=== PATIENT | male | born 1960 | race Caucasian/White ===

== ENCOUNTER 2016-05-30 07:59 | Day surgery (SDC) | payer OTHER ==
[~2016-05-30] VITALS: Ht 179.1 cm; Wt 109.0 kg
[~2016-05-30 07:59] MED LIST: ADALAT CC 30 MG30 MG PO; ADVAIR 250/501 DISK IH; ADVAIR 500/501 DISK IH; ALLEGRA180 MG PO; Advair 250/50 Diskus IH; Ascorbic Acid PO; BUPROBAN150 MG PO; CELEBREX200 MG PO; COMBIVENT200 INHALA IH; Combivent IH; DELTASONE20 M1 PO; Flexeril PO; INDOCIN25 MG PO; MYSOLINE50 MG PO; Martinic PO; NASONEX17 GM BOTH NARES; NASONEX17 GM NS; NEXIUM40 MG PO; NIFEDIPINE20 MG PO; NORCO 7.5/321 TABLET PO; Nifedipine PO; OMEGA 3-6-91200 MG PO; PRIMIDONE PO; PRIMIDONE50 MG PO; Percocet 5/325,Endoc PO; SINGULAIR10 MG PO; SKELAXIN800 MG PO; SYMBICORT60 INHALAT IH; Singulair PO; ULTRAM50 MG PO; UNABLEOBTAIN; VITAMIN B12-FO1 EACH PO; VITAMIN C1000 MG PO; VITAMIN D32000 UNIT PO; Vitamin D PO
== END 2016-05-30 09:30 | disposition home or self-care (01) ==
LOC: PAIN 07:59 → SDC 08:30 → PAIN 09:30
DX: M47.896 Other spondylosis, lumbar region (principal); M54.16 Radiculopathy, lumbar region; J45.909 Unspecified asthma, uncomplicated; I10 Essential (primary) hypertension; E78.5 Hyperlipidemia, unspecified; K21.9 Gastro-esophageal reflux disease without esophagitis; M19.90 Unspecified osteoarthritis, unspecified site; G47.30 Sleep apnea, unspecified; R25.1 Tremor, unspecified; F41.1 Generalized anxiety disorder
CPT/HCPCS: J1030; J2250; J3010; S0020

== ENCOUNTER 2016-07-02 12:20 | Day surgery (SDC) | payer OTHER ==
[~2016-07-02] VITALS: Ht 182.9 cm; Wt 108.9 kg
== END 2016-07-02 14:15 | disposition home or self-care (01) ==
LOC: PAIN 12:20 → SDC 12:45 → PAIN 12:45
PROC: 3E0U33Z Introduction of Anti-inflammatory into Joints, Percutaneous Approach (ICD-10-PCS; principal; 2016-07-02)
DX: M46.1 Sacroiliitis, not elsewhere classified (principal); M54.16 Radiculopathy, lumbar region; F41.1 Generalized anxiety disorder; J45.909 Unspecified asthma, uncomplicated; K22.70 Barrett's esophagus without dysplasia; I10 Essential (primary) hypertension; E78.5 Hyperlipidemia, unspecified; G47.30 Sleep apnea, unspecified
CPT/HCPCS: J1030; S0020

== ENCOUNTER 2016-12-17 16:46 | Observation (INO) | payer OTHER ==
[~2016-12-17] VITALS: Ht 180.3 cm; Wt 119.8 kg
[~2016-12-17 16:46] MED LIST changes: +VITAMIN D2000 UNIT PO; -VITAMIN D32000 UNIT PO
[2016-12-17 17:41] LABS: ADD MIUA? NO; BILIRUBIN NEGATIVE; BLOOD NEGATIVE; COLOR YELLOW ((YELLOW)); GLUCOSE (STRIP) NEGATIVE; KETONES NEGATIVE; LEUKOCYTES NEGATIVE; NITRITE NEGATIVE; PROTEIN (STRIP) NEGATIVE; SPECIFIC GRAVITY 1.025 (1.000-1.030); UROBILINOGEN 0.2 MG/DL (0.2-1.0)
[2016-12-17 18:15] LABS: HEMATOCRIT 43.2 % (38.0-50.0); MCHC 34.5 G/DL (30.0-36.0); MCV 95.8 FL (86-99); MEAN PLAT.VOLUME 9.8 uM^3 (9.0-12.4); PLATELET COUNT 274 K/uL (156-360); RBC DIS.WIDTH-CV 12.6 % (11.8-14.6); RBC DIS.WIDTH-SD 44.7 % (39-53); RED BLOOD COUNT 4.51 M/uL (4.00-5.50); WHITE BLOOD COUNT 10.6 K/uL (4.1-10.2)
[2016-12-17 18:21] LABS: PROTHROMBIN TIME 11.3 SEC (10.2-12.9)
[2016-12-17 18:23] LABS: D-DIMER ELISA < 150.00 ng/mLDDU (<230)
[2016-12-17 18:24] LABS: PTT 28.9 SEC (25-37)
[2016-12-17 18:28] LABS: CHLORIDE 107 mEq/L (99-109); SODIUM 141 mEq/L (136-147)
[2016-12-17 18:31] LABS: GLUCOSE 106 mg/dL (70-99)
[2016-12-17 18:32] LABS: ANION GAP 14 MEQ/L (2-14)
[2016-12-17 18:33] LABS: TOTAL BILIRUBIN 0.3 mg/dL (0.0-1.0)
[2016-12-17 18:34] LABS: ALKALINE PHOSPHATASE 37 IU/L (3-129); GFR ESTIMATE (CALCULATED) > 59 mL/min/
[2016-12-17 18:35] LABS: UREA NITROGEN (BUN) 26 mg/dL (9-23)
[2016-12-17 18:36] LABS: TROP-I INTERPRETATION NEGATIVE; TROPONIN-I < 0.01 ng/mL (0.0-0.30)
[2016-12-17 18:38] LABS: LIPASE 33 U/L (1.0-51.0)
[2016-12-17] MEDS ORDERED: unable to obtain (19:35)
[2016-12-17] MEDS ORDERED: CIPRO500 MG PO (21:00)
[2016-12-17 21:25] LABS: TROP-I INTERPRETATION NEGATIVE; TROPONIN-I 0.26 ng/mL (0.0-0.30)
[2016-12-17] MEDS ORDERED: BUPROPION XL150 MG PO (22:55)
[2016-12-17] MEDS ORDERED: VITAMIN B-122000 MC1 PO (22:58)
[2016-12-17] MEDS ORDERED: SINGULAIR10 MG PO (23:01)
[2016-12-17] MEDS ORDERED: VITAMIN E400 UNIT PO (23:02)
[2016-12-17] MEDS ORDERED: CARAFATE1 GM PO (23:02)
[2016-12-18 00:39] VITALS: BP 133/75
[2016-12-18 03:29] LABS: HDL CHOLESTEROL 55 MG/DL (Desirable>=40); LDL CHOLESTEROL 79 mg/dL (Desirable<100); NON-HDL CHOLESTEROL 104 mg/dL (Desirable<160); TOTAL CHOLESTEROL 159 mg/dL (Desirable<200); TRIGLYCERIDES 126 MG/DL (Normal: <150)
[2016-12-18 04:45] VITALS: BP 120/75
[2016-12-18 05:24] LABS: MCH 33.5 PG (29.0-34.0); MCHC 34.3 G/DL (30.0-36.0); MCV 97.8 FL (86-99); MEAN PLAT.VOLUME 9.9 uM^3 (9.0-12.4); PLATELET COUNT 236 K/uL (156-360); RBC DIS.WIDTH-CV 12.9 % (11.8-14.6); RED BLOOD COUNT 4.09 M/uL (4.00-5.50); WHITE BLOOD COUNT 8.1 K/uL (4.1-10.2)
[2016-12-18 05:44] LABS: TROP-I INTERPRETATION NEGATIVE; TROPONIN-I 0.02 ng/mL (0.0-0.30)
[2016-12-18 05:48] LABS: ALKALINE PHOSPHATASE 29 IU/L (3-129); ANION GAP 9 MEQ/L (2-14); CHLORIDE 106 MEQ/L (99-109); GFR ESTIMATE (CALCULATED) > 59 mL/min/; GLUCOSE 89 mg/dL (70-99); POTASSIUM 4.1 MEQ/L (3.7-5.4); SAMPLE HEMOLYSIS CHECK 0; SAMPLE ICTERIC CHECK 0; SAMPLE LIPEMIA CHECK 0; SODIUM 143 MEQ/L (136-147); TOTAL BILIRUBIN 0.6 MG/DL (0.0-1.0); UREA NITROGEN (BUN) 24 mg/dL (9-23)
[2016-12-18 07:28] LABS: METH RESISTANT S AUREUS PCR POSITIVE (NEGATIVE)
[2016-12-18 07:29] LABS: PROBE CHECK PASS
[2016-12-18 09:40] VITALS: BP 114/68
[2016-12-18 11:47] VITALS: BP 121/72
[2016-12-18 13:19] LABS: TROP-I INTERPRETATION NEGATIVE; TROPONIN-I 0.01 ng/mL (0.0-0.30)
[2016-12-18] MEDS ORDERED: NITROSTAT0.4 MG SL (15:01)
[2016-12-18] MEDS ORDERED: CIPROFLOXACIN500 M1 PO (15:01)
[2016-12-18] MEDS ORDERED: ASPIR 8181 M1 PO (15:01)
== END 2016-12-18 16:12 | disposition home or self-care (01) ==
LOC: EME 16:46 → EDOF 23:24 → 5WEST 23:24 → ENRESERV 23:26 → 5WEST 12-18 00:25
PROVIDERS: Internal Medicine; Physician Assistant; Physician Assistant Medical
DX: R07.2 Precordial pain (principal); N30.90 Cystitis, unspecified without hematuria; Z86.718 Personal history of other venous thrombosis and embolism; Z86.711 Personal history of pulmonary embolism; J44.9 Chronic obstructive pulmonary disease, unspecified; I10 Essential (primary) hypertension; F41.9 Anxiety disorder, unspecified; K21.9 Gastro-esophageal reflux disease without esophagitis; M54.9 Dorsalgia, unspecified; G47.33 Obstructive sleep apnea (adult) (pediatric); E83.119 Hemochromatosis, unspecified; K22.70 Barrett's esophagus without dysplasia; R10.31 Right lower quadrant pain
CPT/HCPCS: 71020; 74176; 80053; 80061; 81003; 83690; 84484; 85027; 85379; 85610; 85730; 87641; 93005; 94640; 99202; 99281; 99285; G0378; J1644; J2270; J7030

== ENCOUNTER 2017-01-12 13:52 | Inpatient (IN) | payer OTHER ==
[~2017-01-12] VITALS: Ht 180.3 cm; Wt 117.4 kg
[~2017-01-12 13:52] MED LIST changes: +ASPIR 8181 M1 PO; +BUPROPION XL150 MG PO; +CARAFATE1 GM PO; +CIPRO500 MG PO; +CIPROFLOXACIN500 M1 PO; +NITROSTAT0.4 MG SL; +VITAMIN B-122000 MC1 PO; +VITAMIN E400 UNIT PO; +unable to obtain
[2017-01-12 14:51] LABS: ADD MIUA? NO; BILIRUBIN NEGATIVE; BLOOD NEGATIVE; COLOR COLORLESS ((YELLOW)); GLUCOSE (STRIP) NEGATIVE; KETONES NEGATIVE; LEUKOCYTES NEGATIVE; NITRITE NEGATIVE; PROTEIN (STRIP) NEGATIVE; SPECIFIC GRAVITY 1.003 (1.000-1.030); UCUL ADDED? NO; UROBILINOGEN 0.2 MG/DL (0.2-1.0)
[2017-01-12 15:00] LABS: AMPHETAMINE NEGATIVE (500 ng/mL); BARBITURATES NEGATIVE (200 ng/mL); BENZODIAZEPINES NEGATIVE (150 ng/mL); COCAINE NEGATIVE (150 ng/mL); INTERNAL CONTROLS VALID? YES; METHADONE NEGATIVE (200 ng/mL); METHAMPHETAMINE NEGATIVE (500 ng/mL); OPIATES (MORPHINE) NEGATIVE (100 ng/mL); OXYCODONE NEGATIVE (100 ng/mL); PHENCYCLIDINE NEGATIVE (25 ng/mL); PROPOXYPHENE NEGATIVE (300 ng/mL); THC CANNABINOIDS NEGATIVE (50 ng/mL); TRICYCLIC ANTIDEPRESSANTS NEGATIVE (300 ng/mL)
[2017-01-12 15:36] LABS: EOSINOPHIL (%) 3.5 % (0-5); EOSINOPHIL COUNT 0.2 K/uL (0-0.3); IMMATURE GRANULOCYTE (%) 0.7 % (0.0-0.7); INSTRUMENT ABS NEUTROPHIL CT 3.3 K/uL; LYMPHOCYTE COUNT 1.7 K/uL (1.0-2.8); MCH 33.2 PG (29.0-34.0); MEAN PLAT.VOLUME 9.6 uM^3 (9.0-12.4); MONOCYTE (%) 11.9 % (3-12); MONOCYTE COUNT 0.7 K/uL (0-0.8); NEUTROPHIL (%) 54.7 % (45-76); NEUTROPHIL COUNT 3.3 K/uL (1.8-6.4); PLATELET COUNT 263 K/uL (156-360); RBC DIS.WIDTH-CV 12.2 % (11.8-14.6); RBC DIS.WIDTH-SD 42.2 % (39-53); RED BLOOD COUNT 4.22 M/uL (4.00-5.50)
[2017-01-12 15:37] LABS: MCV 94.8 FL (86-99)
[2017-01-12 15:46] LABS: CHLORIDE 108 mEq/L (99-109); POTASSIUM 3.7 mEq/L (3.7-5.4); SODIUM 142 mEq/L (136-147)
[2017-01-12 15:48] LABS: GLUCOSE 79 mg/dL (70-99)
[2017-01-12 15:49] LABS: ANION GAP 10 MEQ/L (2-14)
[2017-01-12 15:50] LABS: TOTAL BILIRUBIN 0.6 mg/dL (0.0-1.0)
[2017-01-12 15:51] LABS: SERUM ETHYL ALCOHOL < 10 mg/dL
[2017-01-12 15:52] LABS: ALKALINE PHOSPHATASE 35 IU/L (3-129); GFR ESTIMATE (CALCULATED) > 59 mL/min/
[2017-01-12 15:53] LABS: UREA NITROGEN (BUN) 16 mg/dL (9-23)
[2017-01-12 15:57] LABS: TROP-I INTERPRETATION NEGATIVE; TROPONIN-I < 0.01 ng/mL (0.0-0.30)
[2017-01-12] MEDS ORDERED: CIPRO500 MG PO (17:16)
[2017-01-12] MEDS ORDERED: FLOMAX0.4 MG PO (17:20)
[2017-01-12] MEDS ORDERED: HYOSCYAMINE0.125 M1 SL (17:20)
[2017-01-12] MEDS ORDERED: MYRBETRIQ50 MG PO (17:20)
[2017-01-12 17:57] VITALS: BP 161/92
[2017-01-12 18:00] VITALS: BP 144/66
[2017-01-13] VITALS (7 sets, daily range): BP systolic 126–163; BP diastolic 72–91
[2017-01-13 05:57] LABS: HEMATOCRIT 39.9 % (38.0-50.0); MCH 33.3 PG (29.0-34.0); MCHC 34.3 G/DL (30.0-36.0); MCV 97.1 FL (86-99); MEAN PLAT.VOLUME 10.1 uM^3 (9.0-12.4); PLATELET COUNT 262 K/uL (156-360); RBC DIS.WIDTH-CV 12.6 % (11.8-14.6); RBC DIS.WIDTH-SD 44.6 % (39-53); RED BLOOD COUNT 4.11 M/uL (4.00-5.50)
[2017-01-13 06:59] LABS: ANION GAP 8 MEQ/L (2-14); CHLORIDE 104 MEQ/L (99-109); GFR ESTIMATE (CALCULATED) > 59 mL/min/; GLUCOSE 81 mg/dL (70-99); POTASSIUM 4.1 MEQ/L (3.7-5.4); SAMPLE HEMOLYSIS CHECK 0; SAMPLE ICTERIC CHECK 0; SAMPLE LIPEMIA CHECK 0; SODIUM 141 MEQ/L (136-147); UREA NITROGEN (BUN) 16 mg/dL (9-23)
[2017-01-13 10:41] LABS: POINT-OF-CARE METER ID UU13113702
[2017-01-13] MEDS ORDERED: ATORVASTATIN CA20 MG PO (15:37)
[2017-01-13] MEDS ORDERED: ASPIR 8181 M1 PO (15:37)
[2017-01-13 17:09] LABS: HDL CHOLESTEROL 46 MG/DL (Desirable>=40); LDL CHOLESTEROL 89 mg/dL (Desirable<100); NON-HDL CHOLESTEROL 126 mg/dL (Desirable<160); TOTAL CHOLESTEROL 172 mg/dL (Desirable<200); TRIGLYCERIDES 183 MG/DL (Normal: <150)
[2017-01-13 17:14] LABS: TROP-I INTERPRETATION NEGATIVE; TROPONIN-I 0.02 ng/mL (0.0-0.30)
[2017-01-14] VITALS (11 sets, daily range): BP systolic 112–157; BP diastolic 61–78
[2017-01-14 09:04] LABS: HDL CHOLESTEROL 51 MG/DL (Desirable>=40); LDL CHOLESTEROL 111 mg/dL (Desirable<100); NON-HDL CHOLESTEROL 129 mg/dL (Desirable<160); TOTAL CHOLESTEROL 180 mg/dL (Desirable<200); TRIGLYCERIDES 88 MG/DL (Normal: <150)
[2017-01-15] VITALS (13 sets, daily range): BP systolic 113–138; BP diastolic 56–86
[2017-01-15 06:25] LABS: BASOPHIL COUNT 0.1 K/uL (0-0.1); EOSINOPHIL (%) 4.1 % (0-5); EOSINOPHIL COUNT 0.3 K/uL (0-0.3); HEMATOCRIT 40.9 % (38.0-50.0); IMMATURE GRANULOCYTE (%) 0.8 % (0.0-0.7); IMMATURE GRANULOCYTE COUNT 0.1 K/uL; INSTRUMENT ABS NEUTROPHIL CT 3.4 K/uL; LYMPHOCYTE COUNT 1.9 K/uL (1.0-2.8); MCH 34.5 PG (29.0-34.0); MCV 98.8 FL (86-99); MEAN PLAT.VOLUME 9.9 uM^3 (9.0-12.4); MONOCYTE (%) 11.9 % (3-12); MONOCYTE COUNT 0.8 K/uL (0-0.8); NEUTROPHIL (%) 52.8 % (45-76); NEUTROPHIL COUNT 3.4 K/uL (1.8-6.4); PLATELET COUNT 256 K/uL (156-360); RBC DIS.WIDTH-CV 12.6 % (11.8-14.6); RBC DIS.WIDTH-SD 45.4 % (39-53); RED BLOOD COUNT 4.14 M/uL (4.00-5.50); WHITE BLOOD COUNT 6.4 K/uL (4.1-10.2)
[2017-01-15 06:58] LABS: ALKALINE PHOSPHATASE 28 IU/L (3-129); ANION GAP 6 MEQ/L (2-14); CHLORIDE 105 MEQ/L (99-109); GFR ESTIMATE (CALCULATED) > 59 mL/min/; GLUCOSE 83 mg/dL (70-99); POTASSIUM 4.5 MEQ/L (3.7-5.4); SAMPLE HEMOLYSIS CHECK 0; SAMPLE ICTERIC CHECK 0; SAMPLE LIPEMIA CHECK 0; SODIUM 140 MEQ/L (136-147); TOTAL BILIRUBIN 0.4 MG/DL (0.0-1.0); UREA NITROGEN (BUN) 15 mg/dL (9-23)
[2017-01-16 05:44] VITALS: BP 123/80
[2017-01-16 07:44] VITALS: BP 123/78
[2017-01-16 17:17] VITALS: BP 139/87
[2017-01-16 18:48] VITALS: BP 128/64
[2017-01-16 19:14] LABS: HEMATOCRIT 41.3 % (38.0-50.0); MCH 34.7 PG (29.0-34.0); MCHC 35.4 G/DL (30.0-36.0); MCV 98.1 FL (86-99); MEAN PLAT.VOLUME 9.7 uM^3 (9.0-12.4); PLATELET COUNT 259 K/uL (156-360); RBC DIS.WIDTH-CV 12.6 % (11.8-14.6); RBC DIS.WIDTH-SD 45.1 % (39-53); RED BLOOD COUNT 4.21 M/uL (4.00-5.50)
[2017-01-16 19:29] LABS: ANION GAP 9 MEQ/L (2-14); CHLORIDE 105 MEQ/L (99-109); POTASSIUM 3.9 MEQ/L (3.7-5.4); SAMPLE HEMOLYSIS CHECK 0; SAMPLE ICTERIC CHECK 0; SAMPLE LIPEMIA CHECK 0; SODIUM 138 MEQ/L (136-147)
[2017-01-16 19:39] LABS: TROP-I INTERPRETATION NEGATIVE; TROPONIN-I 0.02 ng/mL (0.0-0.30)
[2017-01-16 19:43] LABS: GFR ESTIMATE (CALCULATED) > 59 mL/min/; GLUCOSE 204 mg/dL (70-99); UREA NITROGEN (BUN) 14 mg/dL (9-23)
[2017-01-16 20:02] VITALS: BP 142/84
[2017-01-17 00:51] VITALS: BP 116/64
[2017-01-17 03:22] VITALS: BP 129/79
[2017-01-17 06:21] LABS: POINT-OF-CARE METER ID UU13113725
[2017-01-17 06:24] LABS: BASOPHIL COUNT 0.1 K/uL (0-0.1); EOSINOPHIL (%) 2.4 % (0-5); EOSINOPHIL COUNT 0.2 K/uL (0-0.3); HEMATOCRIT 41.1 % (38.0-50.0); IMMATURE GRANULOCYTE (%) 0.6 % (0.0-0.7); INSTRUMENT ABS NEUTROPHIL CT 3.9 K/uL; LYMPHOCYTE COUNT 1.5 K/uL (1.0-2.8); MCH 33.1 PG (29.0-34.0); MCHC 33.6 G/DL (30.0-36.0); MCV 98.6 FL (86-99); MEAN PLAT.VOLUME 9.8 uM^3 (9.0-12.4); MONOCYTE COUNT 0.7 K/uL (0-0.8); NEUTROPHIL (%) 61.8 % (45-76); NEUTROPHIL COUNT 3.9 K/uL (1.8-6.4); PLATELET COUNT 265 K/uL (156-360); RBC DIS.WIDTH-CV 12.6 % (11.8-14.6); RBC DIS.WIDTH-SD 45.9 % (39-53); RED BLOOD COUNT 4.17 M/uL (4.00-5.50); WHITE BLOOD COUNT 6.3 K/uL (4.1-10.2)
[2017-01-17 06:54] LABS: ALKALINE PHOSPHATASE 30 IU/L (3-129); ANION GAP 7 MEQ/L (2-14); CHLORIDE 104 MEQ/L (99-109); DIRECT BILIRUBIN 0.1 mg/dL (0.0-0.3); GFR ESTIMATE (CALCULATED) > 59 mL/min/; POTASSIUM 4.5 MEQ/L (3.7-5.4); SAMPLE HEMOLYSIS CHECK 0; SAMPLE ICTERIC CHECK 0; SAMPLE LIPEMIA CHECK 0; SODIUM 142 MEQ/L (136-147); TOTAL BILIRUBIN 0.4 MG/DL (0.0-1.0); UREA NITROGEN (BUN) 14 mg/dL (9-23)
[2017-01-17 07:02] LABS: GLUCOSE 84 mg/dL (70-99)
[2017-01-17 07:31] VITALS: BP 118/70
[2017-01-17 08:35] LABS: Estimated Average Glucose 94 mg/dL (70-123); HEMOGLOBIN A1c (GLYCOHEMOGLOB) 4.9 % HGB (Below 5.7)
[2017-01-17] MEDS ORDERED: FLORASTOR250 MG PO (08:38)
[2017-01-17] MEDS ORDERED: CLOPIDOGREL75 MG PO (08:38)
[2017-01-17] MEDS ORDERED: AMOX TR-K CLV1 EAC4 PO (08:38)
[2017-01-17 09:23] LABS: C-REACTIVE PROTEIN 2.4 MG/L (0-10)
[2017-01-17 11:36] VITALS: BP 134/85
== END 2017-01-17 12:50 | disposition home or self-care (01) | DRG 382 ==
LOC: EME → EDBD 13:52 → EDOF 16:43 → 5WEST 16:43 → ENRESERV 16:48 → 5WEST 17:49 → 5EAST 01-13 16:46 → 5WEST 01-13 16:46 → ENRESERV 01-13 22:00 → 5EAST 01-13 22:53 → ENPENDDIS 01-17 → 5EAST 01-17 12:50
PROVIDERS: Emergency Medicine; Hospitalist; Internal Medicine; Nurse Practitioner Adult Health; Physician Assistant; Student in an Organized Health Care Education/Training Program
PROC: 0DJ08ZZ Inspection of Upper Intestinal Tract, Via Natural or Artificial Opening Endoscopic (ICD-10-PCS; principal; 2017-01-15)
DX: K22.70 Barrett's esophagus without dysplasia (principal); R41.82 Altered mental status, unspecified; E16.1 Other hypoglycemia; I11.9 Hypertensive heart disease without heart failure; G40.909 Epilepsy, unspecified, not intractable, without status epilepticus; I70.0 Atherosclerosis of aorta; G47.33 Obstructive sleep apnea (adult) (pediatric); J44.9 Chronic obstructive pulmonary disease, unspecified; I35.1 Nonrheumatic aortic (valve) insufficiency; N30.90 Cystitis, unspecified without hematuria; G89.29 Other chronic pain; G25.0 Essential tremor; I71.2 Thoracic aortic aneurysm, without rupture; I71.6 Thoracoabdominal aortic aneurysm, without rupture; K21.9 Gastro-esophageal reflux disease without esophagitis; K29.70 Gastritis, unspecified, without bleeding; Z68.36 Body mass index [BMI] 36.0-36.9, adult; N40.0 Benign prostatic hyperplasia without lower urinary tract symptoms; R07.9 Chest pain, unspecified; J01.00 Acute maxillary sinusitis, unspecified; J32.0 Chronic maxillary sinusitis; R11.0 Nausea; E66.9 Obesity, unspecified; F41.9 Anxiety disorder, unspecified; E83.119 Hemochromatosis, unspecified; Z86.14 Personal history of Methicillin resistant Staphylococcus aureus infection; K44.9 Diaphragmatic hernia without obstruction or gangrene; M54.9 Dorsalgia, unspecified; E16.2 Hypoglycemia, unspecified; Z79.899 Other long term (current) drug therapy; Z87.442 Personal history of urinary calculi; Z83.3 Family history of diabetes mellitus; Z82.5 Family history of asthma and other chronic lower respiratory diseases; Z82.49 Family history of ischemic heart disease and other diseases of the circulatory system; Z80.6 Family history of leukemia
CPT/HCPCS: 70450; 70549; 70551; 71010; 74185; 76700; 78227; 80048; 80053; 80061; 80069; 80076; 81003; 82140; 82948; 83036; 83605; 83880; 83935; 84443; 84484; 85025; 85027; 85651; 86140; 93005; 94640; 94640 76; 94660; 95819; 99281; 99285; A9537; G0378; G0480; J1200; J1650; J2250; J2405; J2805; J7042

== ENCOUNTER 2017-03-18 14:20 | Observation (INO) | payer OTHER ==
[~2017-03-18] VITALS: Ht 180.3 cm; Wt 118.6 kg
[~2017-03-18 14:20] MED LIST changes: +AMOX TR-K CLV1 EAC4 PO; +ATORVASTATIN CA20 MG PO; +CLOPIDOGREL75 MG PO; +FLOMAX0.4 MG PO; +FLORASTOR250 MG PO; +HYOSCYAMINE0.125 M1 SL; +LIPITOR20 MG PO; +MYRBETRIQ50 MG PO; +PLAVIX75 MG PO
[2017-03-18 15:09] LABS: HEMATOCRIT 40.5 % (38.0-50.0); MCH 32.9 PG (29.0-34.0); MCHC 35.3 G/DL (30.0-36.0); MCV 93.1 FL (86-99); MEAN PLAT.VOLUME 9.7 uM^3 (9.0-12.4); PLATELET COUNT 246 K/uL (156-360); RBC DIS.WIDTH-CV 11.8 % (11.8-14.6); RBC DIS.WIDTH-SD 40.3 % (39-53); RED BLOOD COUNT 4.35 M/uL (4.00-5.50); WHITE BLOOD COUNT 4.8 K/uL (4.1-10.2)
[2017-03-18 15:17] LABS: CHLORIDE 109 mEq/L (99-109); D-DIMER ELISA < 150.00 ng/mLDDU (<230); POTASSIUM 4.1 mEq/L (3.7-5.4); SODIUM 139 mEq/L (136-147)
[2017-03-18 15:19] LABS: GLUCOSE 114 mg/dL (70-99)
[2017-03-18 15:21] LABS: ANION GAP 8 MEQ/L (2-14)
[2017-03-18 15:23] LABS: GFR ESTIMATE (CALCULATED) > 59 mL/min/
[2017-03-18 15:24] LABS: UREA NITROGEN (BUN) 14 mg/dL (9-23)
[2017-03-18 15:30] LABS: TROP-I INTERPRETATION NEGATIVE; TROPONIN-I < 0.01 ng/mL (0.0-0.30)
[2017-03-18 18:09] VITALS: BP 137/82
[2017-03-18] MEDS ORDERED: ASPIR 8181 M1 PO (19:38)
[2017-03-18] MEDS ORDERED: VITAMIN B-122500 MCG SL (19:41)
[2017-03-18 21:15] LABS: TROP-I INTERPRETATION NEGATIVE; TROPONIN-I 0.01 ng/mL (0.0-0.30)
[2017-03-18 22:15] LABS: METH RESISTANT S AUREUS PCR POSITIVE (NEGATIVE)
[2017-03-18 22:16] LABS: PROBE CHECK PASS; SPECIMEN PROCESSING CONTROL PASS
[2017-03-18 23:30] VITALS: BP 131/79
[2017-03-19 03:50] VITALS: BP 127/80
[2017-03-19 04:01] LABS: TROP-I INTERPRETATION NEGATIVE; TROPONIN-I 0.02 ng/mL (0.0-0.30)
[2017-03-19 08:00] VITALS: BP 125/80
[2017-03-19] MEDS ORDERED: BACTROBAN NASAL1 G1 BOTH NARES (11:28)
[2017-03-19 12:43] VITALS: BP 128/74
== END 2017-03-19 14:20 | disposition home or self-care (01) ==
LOC: EME 14:20 → EDOF 16:58 → 5WEST 16:58 → ENRESERV 17:16 → 5WEST 18:04
PROVIDERS: Emergency Medicine; Internal Medicine
DX: R07.89 Other chest pain (principal); Z22.322 Carrier or suspected carrier of Methicillin resistant Staphylococcus aureus; I10 Essential (primary) hypertension; K22.70 Barrett's esophagus without dysplasia; E83.119 Hemochromatosis, unspecified; N40.0 Benign prostatic hyperplasia without lower urinary tract symptoms; I35.1 Nonrheumatic aortic (valve) insufficiency; I71.2 Thoracic aortic aneurysm, without rupture; J44.9 Chronic obstructive pulmonary disease, unspecified; I70.0 Atherosclerosis of aorta; K76.9 Liver disease, unspecified; R10.11 Right upper quadrant pain; E78.5 Hyperlipidemia, unspecified; G47.30 Sleep apnea, unspecified; E66.9 Obesity, unspecified; Z68.36 Body mass index [BMI] 36.0-36.9, adult; I45.10 Unspecified right bundle-branch block; F32.9 Major depressive disorder, single episode, unspecified; F41.9 Anxiety disorder, unspecified; G89.29 Other chronic pain; Z79.82 Long term (current) use of aspirin; Z79.02 Long term (current) use of antithrombotics/antiplatelets; Z87.442 Personal history of urinary calculi; Z82.49 Family history of ischemic heart disease and other diseases of the circulatory system; Z83.3 Family history of diabetes mellitus; Z80.6 Family history of leukemia
CPT/HCPCS: 71010; 80048; 84484; 85027; 85379; 87641; 93005; 94640; 94640 76; 99281; 99285; G0378; J1644; J2270

== ENCOUNTER → 2017-04-03 | Outpatient (CLI) | payer OTHER ==
[~2017-04-03] MED LIST changes: +BACTROBAN NASAL1 G1 BOTH NARES; +VITAMIN B-122500 MCG SL
== END | disposition home or self-care (01) ==
LOC: NUC 08:19
DX: R10.11 Right upper quadrant pain (principal)
CPT/HCPCS: 78226; A9537

== ENCOUNTER → 2017-04-08 | Outpatient (CLI) | payer OTHER | END | disposition home or self-care (01) | LOC: NUC 08:15 | DX: R94.8 Abnormal results of function studies of other organs and systems (principal) | CPT/HCPCS: 78264; A9541 ==

== ENCOUNTER 2017-05-06 13:27 | Day surgery (SDC) | payer OTHER ==
[~2017-05-06] VITALS: Ht 180.3 cm; Wt 118.1 kg
[2017-05-09] MEDS ORDERED: BUPROPION HCL150 M2 PO (12:49)
[2017-05-09] MEDS ORDERED: PERCOCET 5/31 TABLET PO (12:53)
== END 2017-05-06 14:45 | disposition home or self-care (01) ==
LOC: PAIN 13:27 → SDC 14:00 → PAIN 14:45
DX: M47.26 Other spondylosis with radiculopathy, lumbar region (principal); M51.16 Intervertebral disc disorders with radiculopathy, lumbar region; G89.29 Other chronic pain; M25.78 Osteophyte, vertebrae; M48.02 Spinal stenosis, cervical region; M47.22 Other spondylosis with radiculopathy, cervical region; I10 Essential (primary) hypertension; E78.5 Hyperlipidemia, unspecified; G47.30 Sleep apnea, unspecified; K21.9 Gastro-esophageal reflux disease without esophagitis; J45.909 Unspecified asthma, uncomplicated; Z86.14 Personal history of Methicillin resistant Staphylococcus aureus infection; Z86.711 Personal history of pulmonary embolism; Z87.891 Personal history of nicotine dependence; Z79.02 Long term (current) use of antithrombotics/antiplatelets; Z79.891 Long term (current) use of opiate analgesic
CPT/HCPCS: J1030; J2250; J3010; S0020

== ENCOUNTER 2017-05-13 13:16 | Day surgery (SDC) | payer OTHER ==
[~2017-05-13] VITALS: Ht 180.3 cm; Wt 118.1 kg
[~2017-05-13 13:16] MED LIST changes: +BUPROPION HCL150 M2 PO; +PERCOCET 5/31 TABLET PO
== END 2017-05-13 15:33 | disposition home or self-care (01) ==
LOC: PAIN 13:16 → SDC 14:00 → PAIN 15:33
DX: M47.26 Other spondylosis with radiculopathy, lumbar region (principal); M54.5 Low back pain; G89.29 Other chronic pain; M47.812 Spondylosis without myelopathy or radiculopathy, cervical region; M54.14 Radiculopathy, thoracic region; M46.1 Sacroiliitis, not elsewhere classified; I10 Essential (primary) hypertension; E78.5 Hyperlipidemia, unspecified; G47.30 Sleep apnea, unspecified; J44.9 Chronic obstructive pulmonary disease, unspecified; Z86.73 Personal history of transient ischemic attack (TIA), and cerebral infarction without residual deficits; Z79.891 Long term (current) use of opiate analgesic; Z87.891 Personal history of nicotine dependence
CPT/HCPCS: J1030; J2250; J3010; S0020

== ENCOUNTER 2017-05-15 10:17 | Day surgery (SDC) | payer OTHER ==
[~2017-05-15] VITALS: Ht 180.3 cm; Wt 117.9 kg
[2017-05-15 11:11] VITALS: BP 128/76
[2017-05-15 12:22] LABS: METH RESISTANT S AUREUS PCR NEGATIVE (NEGATIVE)
[2017-05-15 12:24] LABS: PROBE CHECK PASS; SPECIMEN PROCESSING CONTROL PASS
[2017-05-15] MEDS ORDERED: PERCOCET 5/31 TABLET PO (13:31)
[2017-05-15] MEDS ORDERED: HYDROCODON-ACE1 EAC7 PO (15:00)
[2017-05-15 15:25] VITALS: BP 182/87
[2017-05-15 17:10] VITALS: BP 178/86
== END 2017-05-15 17:18 | disposition home or self-care (01) ==
LOC: SDC 10:17
PROVIDERS: Surgery
PROC: 0FT44ZZ Resection of Gallbladder, Percutaneous Endoscopic Approach (ICD-10-PCS; principal; 2017-05-15)
DX: K81.1 Chronic cholecystitis (principal); I10 Essential (primary) hypertension; J44.9 Chronic obstructive pulmonary disease, unspecified; G47.33 Obstructive sleep apnea (adult) (pediatric); K21.9 Gastro-esophageal reflux disease without esophagitis; Z79.02 Long term (current) use of antithrombotics/antiplatelets; I45.10 Unspecified right bundle-branch block; E66.01 Morbid (severe) obesity due to excess calories; Z68.36 Body mass index [BMI] 36.0-36.9, adult
CPT/HCPCS: 87641; 88304; J0131; J0330; J0690; J1100; J1170; J1885; J2250; J2405; J2710; J2765; J3010

== ENCOUNTER 2017-05-15 21:37 | Observation (INO) | payer OTHER ==
[~2017-05-15] VITALS: Ht 180.3 cm; Wt 119.6 kg
[~2017-05-15 21:37] MED LIST changes: +HYDROCODON-ACE1 EAC7 PO
[2017-05-15 23:42] LABS: HEMATOCRIT 38.6 % (38.0-50.0); MCHC 34.7 G/DL (30.0-36.0); MCV 89.4 FL (86-99); MEAN PLAT.VOLUME 9.5 uM^3 (9.0-12.4); PLATELET COUNT 317 K/uL (156-360); RBC DIS.WIDTH-CV 12.2 % (11.8-14.6); RBC DIS.WIDTH-SD 40.1 % (39-53); RED BLOOD COUNT 4.32 M/uL (4.00-5.50); WHITE BLOOD COUNT 12.8 K/uL (4.1-10.2)
[2017-05-15 23:50] LABS: CHLORIDE 101 mEq/L (99-109); POTASSIUM 3.9 mEq/L (3.7-5.4); SODIUM 133 mEq/L (136-147)
[2017-05-15 23:53] LABS: GLUCOSE 113 mg/dL (70-99)
[2017-05-15 23:54] LABS: ANION GAP 9 MEQ/L (2-14)
[2017-05-15 23:55] LABS: TOTAL BILIRUBIN 0.7 mg/dL (0.0-1.0)
[2017-05-15 23:56] LABS: ALKALINE PHOSPHATASE 45 IU/L (3-129); GFR ESTIMATE (CALCULATED) > 59 mL/min/ (58.99-99999)
[2017-05-15 23:57] LABS: UREA NITROGEN (BUN) 15 mg/dL (9-23)
[2017-05-16] LABS: LIPASE 21 U/L (1.0-51.0)
[2017-05-16 06:54] LABS: HEMATOCRIT 38.8 % (38.0-50.0); MCH 30.4 PG (29.0-34.0); MCHC 33.5 G/DL (30.0-36.0); MCV 90.9 FL (86-99); MEAN PLAT.VOLUME 9.7 uM^3 (9.0-12.4); PLATELET COUNT 281 K/uL (156-360); RBC DIS.WIDTH-CV 12.5 % (11.8-14.6); RBC DIS.WIDTH-SD 41.1 % (39-53); RED BLOOD COUNT 4.27 M/uL (4.00-5.50); WHITE BLOOD COUNT 10.3 K/uL (4.1-10.2)
[2017-05-16 07:24] LABS: ALKALINE PHOSPHATASE 39 IU/L (3-129); ANION GAP 7 MEQ/L (2-14); CHLORIDE 106 MEQ/L (99-109); GFR ESTIMATE (CALCULATED) > 59 mL/min/ (58.99-99999); GLUCOSE 91 mg/dL (70-99); POTASSIUM 4.2 MEQ/L (3.7-5.4); SAMPLE HEMOLYSIS CHECK 0; SAMPLE ICTERIC CHECK 0; SAMPLE LIPEMIA CHECK 0; UREA NITROGEN (BUN) 12 mg/dL (9-23)
[2017-05-16 07:29] LABS: SODIUM 141 MEQ/L (136-147); TOTAL BILIRUBIN 0.9 MG/DL (0.0-1.0)
[2017-05-16 11:49] VITALS: BP 174/87
[2017-05-16 15:46] VITALS: BP 146/79
[2017-05-16 20:00] VITALS: BP 175/91
[2017-05-16 20:33] VITALS: BP 162/85
== END 2017-05-16 21:36 | disposition short-term general hospital (02) ==
LOC: EME → EDBD 21:37 → EDOF 05-16 02:08 → 5WEST 05-16 02:08 → ENRESERV 05-16 02:09 → 5WEST 05-16 11:37
PROVIDERS: Emergency Medicine; Surgery
DX: K91.89 Other postprocedural complications and disorders of digestive system (principal); G89.18 Other acute postprocedural pain; R50.82 Postprocedural fever; E87.2 Acidosis; Z90.49 Acquired absence of other specified parts of digestive tract; I10 Essential (primary) hypertension; E83.119 Hemochromatosis, unspecified; N40.0 Benign prostatic hyperplasia without lower urinary tract symptoms; Z79.82 Long term (current) use of aspirin; Z87.442 Personal history of urinary calculi
CPT/HCPCS: 74177; 78226; 80053; 83605; 83690; 85027; 87040; 94640; 94640 76; 94799; 99281; 99285; A9537; G0378; J1170; J1200; J1650; J1885; J2270; J2405; J3010; J7030; J7120

== ENCOUNTER 2017-06-26 09:56 | Day surgery (SDC) | payer OTHER ==
[~2017-06-26] VITALS: Ht 180.3 cm; Wt 117.9 kg
== END 2017-06-26 10:50 | disposition home or self-care (01) ==
LOC: PAIN 09:56 → SDC 10:30 → PAIN 10:30
PROC: 3E0R33Z Introduction of Anti-inflammatory into Spinal Canal, Percutaneous Approach (ICD-10-PCS; principal; 2017-06-26)
PROC: 3E0R3BZ Introduction of Anesthetic Agent into Spinal Canal, Percutaneous Approach (ICD-10-PCS; principal; 2017-06-26)
DX: M54.16 Radiculopathy, lumbar region (principal); M47.816 Spondylosis without myelopathy or radiculopathy, lumbar region; M46.1 Sacroiliitis, not elsewhere classified; M47.812 Spondylosis without myelopathy or radiculopathy, cervical region; K21.9 Gastro-esophageal reflux disease without esophagitis; I10 Essential (primary) hypertension; J44.9 Chronic obstructive pulmonary disease, unspecified; E78.5 Hyperlipidemia, unspecified; I45.10 Unspecified right bundle-branch block; Z79.82 Long term (current) use of aspirin; Z79.891 Long term (current) use of opiate analgesic
CPT/HCPCS: J1100; J2250; J3010

== ENCOUNTER 2017-07-03 13:11 | Day surgery (SDC) | payer OTHER ==
[~2017-07-03] VITALS: Ht 180.3 cm; Wt 117.9 kg
== END 2017-07-03 14:23 | disposition home or self-care (01) ==
LOC: PAIN 13:11 → SDC 15:00 → PAIN 15:00
DX: M47.816 Spondylosis without myelopathy or radiculopathy, lumbar region (principal); M54.16 Radiculopathy, lumbar region; M46.1 Sacroiliitis, not elsewhere classified; M54.12 Radiculopathy, cervical region; M47.812 Spondylosis without myelopathy or radiculopathy, cervical region; M54.14 Radiculopathy, thoracic region; I10 Essential (primary) hypertension; E78.5 Hyperlipidemia, unspecified; J45.909 Unspecified asthma, uncomplicated; K21.9 Gastro-esophageal reflux disease without esophagitis; G47.30 Sleep apnea, unspecified; Z79.891 Long term (current) use of opiate analgesic
CPT/HCPCS: J1100; J2250; J3010

== ENCOUNTER 2017-08-18 17:01 | Emergency (ER) | payer OTHER ==
[~2017-08-18] VITALS: Ht 177.8 cm; Wt 124.3 kg
[2017-08-18 17:32] LABS: HEMATOCRIT 40.7 % (38.0-50.0); HEMOGLOBIN 13.8 G/DL (12.5-16.6); MCH 30.3 PG (29.0-34.0); MCHC 33.9 G/DL (30.0-36.0); MCV 89.3 FL (86-99); PLATELET COUNT 258 K/uL (156-360); RBC DIS.WIDTH-CV 14.4 % (11.8-14.6); RBC DIS.WIDTH-SD 46.7 % (39-53); RED BLOOD COUNT 4.56 M/uL (4.00-5.50); WHITE BLOOD COUNT 5.4 K/uL (4.1-10.2)
[2017-08-18 17:42] LABS: CHLORIDE 106 mEq/L (99-109); SODIUM 140 mEq/L (136-147)
[2017-08-18 17:44] LABS: GLUCOSE 96 mg/dL (70-99)
[2017-08-18 17:48] LABS: GFR ESTIMATE (CALCULATED) > 59 mL/min/ (58.99-99999)
[2017-08-18 17:49] LABS: UREA NITROGEN (BUN) 14 mg/dL (9-23)
[2017-08-18 17:56] LABS: TROP-I INTERPRETATION NEGATIVE; TROPONIN-I 0.01 ng/mL (0.0-0.30)
[2017-08-18 22:12] LABS: TROP-I INTERPRETATION NEGATIVE; TROPONIN-I 0.01 ng/mL (0.0-0.30)
[2017-08-18 22:33] VITALS: BP 140/82
== END 2017-08-18 22:34 | disposition home or self-care (01) ==
LOC: EME 17:01
PROVIDERS: Emergency Medicine
DX: R07.89 Other chest pain (principal); I10 Essential (primary) hypertension; Z86.711 Personal history of pulmonary embolism; Z86.14 Personal history of Methicillin resistant Staphylococcus aureus infection; Z87.442 Personal history of urinary calculi; Z79.82 Long term (current) use of aspirin; Z90.49 Acquired absence of other specified parts of digestive tract
CPT/HCPCS: 71046; 71275; 80048; 84484; 85027; 93005; 99281; 99285; J7030